=== PATIENT | male | born 1945 | race Caucasian/White ===

== ENCOUNTER 2017-06-06 11:37 | Outpatient (RCR) | payer MEDICARE | END 2017-06-15 | disposition home or self-care (01) | LOC: WCC 11:37 | DX: L97.513 Non-pressure chronic ulcer of other part of right foot with necrosis of muscle (principal); E11.621 Type 2 diabetes mellitus with foot ulcer; N28.9 Disorder of kidney and ureter, unspecified; I10 Essential (primary) hypertension; I73.9 Peripheral vascular disease, unspecified; E03.9 Hypothyroidism, unspecified; E78.00 Pure hypercholesterolemia, unspecified; E11.40 Type 2 diabetes mellitus with diabetic neuropathy, unspecified; M19.90 Unspecified osteoarthritis, unspecified site | CPT/HCPCS: 11044; 82962; G0277; G0463 ==

== ENCOUNTER 2017-06-17 08:58 | Outpatient (RCR) | payer MEDICARE | END 2017-07-15 | disposition home or self-care (01) | LOC: WCC 08:58 | DX: L97.513 Non-pressure chronic ulcer of other part of right foot with necrosis of muscle (principal); E11.621 Type 2 diabetes mellitus with foot ulcer; I10 Essential (primary) hypertension; E78.00 Pure hypercholesterolemia, unspecified; E11.40 Type 2 diabetes mellitus with diabetic neuropathy, unspecified; M86.171 Other acute osteomyelitis, right ankle and foot; M14.671 Charcot's joint, right ankle and foot | CPT/HCPCS: 11043; 11044; 82962; 87070; 87181; 87205; 97605; G0277; G0463 ==

== ENCOUNTER 2017-07-16 09:56 | Outpatient (RCR) | payer MEDICARE | END 2017-08-15 | disposition home or self-care (01) | LOC: WCC 09:56 | DX: E11.621 Type 2 diabetes mellitus with foot ulcer (principal); L97.513 Non-pressure chronic ulcer of other part of right foot with necrosis of muscle; M14.671 Charcot's joint, right ankle and foot; E11.43 Type 2 diabetes mellitus with diabetic autonomic (poly)neuropathy; I10 Essential (primary) hypertension; E78.00 Pure hypercholesterolemia, unspecified | CPT/HCPCS: 11043; 11044; 82962; G0277; G0463 ==